=== PATIENT | female | born 1970 | race Caucasian/White ===

== ENCOUNTER 2023-03-08 09:07 | Outpatient (CLI) | payer OTHER | END 2023-03-08 09:08 | disposition home or self-care (01) | LOC: LAB 09:07 | PROVIDERS: ATTEND Surgery | DX: K64.2 Third degree hemorrhoids (principal); R19.4 Change in bowel habit; R19.5 Other fecal abnormalities; K92.1 Melena; K64.4 Residual hemorrhoidal skin tags; I10 Essential (primary) hypertension ==